=== PATIENT | female | born 2000 | race Caucasian/White ===

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

== ENCOUNTER 2021-11-23 18:59 | Emergency (ER) | payer SELFPAY ==
[2021-11-23 21:42] LABS: Basophils % (Auto) 0.2 % (0.0-1.8); Eosinophils % (Auto) 0.1 % (0.0-4.3); Lymphocytes % (Auto) 6.8 % (13.4-35.0); Mean Corpuscular HGB Conc 30 % (30-34); Mean Corpuscular Volume 79 fl (79-97); Monocytes # (Auto) 0.7 K/mm3 (0.0-0.8); Monocytes % (Auto) 4.8 % (0.0-7.3); Platelet Count 392 K/mm3 (140-440); Red Blood Count 4.56 M/mm3 (3.65-5.03); Red Cell Distribution Width 17.3 % (13.2-15.2)
[2021-11-23 22:04] LABS: Bacteria,Urine 1+ /HPF (Negative); Bilirubin,Urine NEG (Negative); Blood,Urine MOD (Negative); Color,Urine Straw (Yellow); Mucus,Urine FEW /HPF; Protein,Urine <15 mg/dL mg/dL (Negative); Urobilinogen,Urine < 2.0 mg/dL (<2.0)
[2021-11-23 22:06] LABS: Alanine Aminotransferase 14 units/L (7-56); Albumin 4.6 g/dL (3.9-5); Blood Urea Nitrogen 6 mg/dL (7-17); Calcium 8.8 mg/dL (8.4-10.2); Hemolysis Index 6
[2021-11-23 22:28] LABS: BUN/Creatinine Ratio 9
[2021-11-23] MEDS ORDERED: ONDANSETRON 4 MG/2 ML INJ IV ONE (23:25)
[2021-11-23] MEDS ORDERED: KETOROLAC 30 MG/1 ML INJ IV ONE (23:25)
[2021-11-23] MEDS ORDERED: cefTRIAXone/NS 1 GM/50 ML 1 GM/50 ML BAG IV ONE (23:25)
[2021-11-23] MEDS ORDERED: SODIUM CHLORIDE 0.9% 1000 ML 1,000 ML IV ONE (23:25)
--- NOTE | 2021-11-24 00:47 | Emergency Department Report ---
ED Female HPI - General Chief complaint: Abdominal Pain Stated complaint: ALCOHOL POISON Source: patient Mode of arrival: Ambulatory Limitations: No Limitations - History of Present Illness Initial comments: Patient is a A1 21-year-old female with a no past medical history who presents to the ED with complaint of acute onset persistent diffuse low abdominal pain that radiates to the bilateral flanks with nausea and vomiting, dysuria, urinary frequency and urgency for the last 3 days. Patient states that the symptoms have especially worsened in the last 12 hours. Patient denies dizziness, syncope, fever, chills, diarrhea, chest pain or shortness of breath, sore throat, headache, low back pain, dyspareunia, hematochezia, vaginal discharge or cough. MD Complaint: dysuria, pelvic pain, other (Urinary frequency and urgency; nausea and vomiting; bilateral flank pain) -: Sudden, days(s) (3) Location: suprapubic Radiation: suprapubic, L flank, R flank Severity: severe Severity scale (0 -10): 7 Quality: sharp, aching Consistency: constant Improves with: none Worsens with: movement Are you Now?: No Last Menstrual Period: 11/17/21 EDC: 08/24/22 Associated Symptoms: denies other symptoms, abdominal pain (Suprapubic pain), nausea/vomiting, dysuria. denies: vaginal discharge, vaginal bleeding, f ever/chills, loss of appetite, hematuria, rash, seizure, shortness of breath, weakness, other - Related Data Sexually active: Yes : 1 Para: 0 A: 1 Previous Rx's Medication Instructions Recorded Last Taken Type Ibuprofen [Motrin] 600 mg PO Q8H PRN #30 tablet 11/24/21 Unknown Rx Ondansetron [Zofran Odt] 4 mg PO Q8HR PRN #15 tab.rapdis 11/24/21 Unknown Rx Sulfamethoxazole/Trimethoprim 1 each PO Q12H #20 tab 11/24/21 Unknown Rx [Bactrim DS TAB] Allergies Allergy/AdvReac Type Severity Reaction Status Date / Time No Known Allergies Allergy Verified 11/23/21 20:59 ED Review of Systems ROS: Stated complaint: ALCOHOL POISON Other details as noted in HPI Constitutional: denies: chills, fever Eyes: denies: eye pain, eye discharge, vision change ENT: denies: ear pain, throat pain Respiratory: denies: cough, shortness of breath, wheezing Cardiovascular: denies: chest pain, palpitations Endocrine: no symptoms reported Gastrointestinal: abdominal pain (Suprapubic pain), nausea, vomiting. denies: diarrhea, constipation, hematemesis Genitourinary: urgency, dysuria, frequency. denies: hematuria, discharge, abnormal menses, dyspareunia Musculoskeletal: denies: back pain, joint swelling, arthralgia Skin: denies: rash, lesions Neurological: denies: headache, weakness, paresthesias Psychiatric: denies: anxiety, depression Hematological/Lymphatic: denies: easy bleeding, easy bruising ED Past Medical Hx - Past Medical History Previous Medical History?: No - Surgical History Past Surgical History?: No - Medications Home Medications: Home Medications Medication Instructions Recorded Confirmed Last Taken Type Ibuprofen [Motrin] 600 mg PO Q8H PRN #30 tablet 11/24/21 Unknown Rx Ondansetron [Zofran Odt] 4 mg PO Q8HR PRN #15 tab.rapdis 11/24/21 Unknown Rx Sulfamethoxazole/Trimethoprim 1 each PO Q12H #20 tab 11/24/21 Unknown Rx [Bactrim DS TAB] ED Physical Exam - General Limitations: No Limitations General appearance: alert, in no apparent distress - Head Head exam: Present: atraumatic, normocephalic, normal inspection - Eye Eye exam: Present: normal appearance, PERRL, EOMI. Absent: scleral icterus Pupils: Present: normal accommodation - ENT ENT exam: Present: normal exam, normal orophraynx, mucous membranes moist, TM's normal bilaterally, normal external ear exam - Neck Neck exam: Present: normal inspection, full ROM. Absent: tenderness - Respiratory Respiratory exam: Present: normal lung sounds bilaterally. Absent: respiratory distress, wheezes, rales, rhonchi, chest wall tenderness, accessory muscle use, decreased breath sounds, prolonged expiratory - Cardiovascular Cardiovascular Exam: Present: normal rhythm, tachycardia, normal heart sounds. Absent: systolic murmur, diastolic murmur, rubs, gallop - GI/Abdominal GI/Abdominal exam: Present: soft, tenderness (Palpable mild suprapubic tenderness; palpable bilateral flank tenderness), normal bowel sounds. Absent: guarding, rebound, rigid, hyperactive bowel sounds, hypoactive bowel sounds, organomegaly, bruit - Bi-manual exam: Present: other (Pelvic exam deferred at this time) - Extremities Exam Extremities exam: Present: normal inspection, full ROM, normal capillary refill - Back Exam Back exam: Present: normal inspection, full ROM, CVA tenderness (R), CVA tendern ess (L). Absent: tenderness, muscle spasm, paraspinal tenderness, vertebral tenderness - Neurological Exam Neurological exam: Present: alert, oriented X3, CN II-XII intact, normal gait, reflexes normal - Psychiatric Psychiatric exam: Present: normal affect, normal mood - Skin Skin exam: Present: warm, dry, intact, normal color. Absent: rash ED Course Vital Signs 11/23/21 20:59 Temperature 99.8 F H Pulse Rate 102 H Respiratory 17 Rate Blood Pressure 125/84 [Right] O2 Sat by Pulse 99 Oximetry ED Medical Decision Making - Lab Data Result diagrams: 11/23/21 21:11 11/23/21 21:11 - Medical Decision Making This is a A1 21-year-old female with a no past medical history who presents to the ED with complaint of acute onset persistent diffuse low abdominal pain that radiates to the bilateral flanks with nausea and vomiting, dysuria, urinary frequency and urgency for the last 3 days. Patient states that the symptoms have especially worsened in the last 12 hours. In the ED, patient is alert and oriented x3 and is not in any distress. Patient appears to be in pain. Patient was treated for pain in the ED and also given antiemetics and normal saline 1 L IV bolus x1. Lab test results were reviewed and showed acute leukocytosis of 14,400 and significant urinary tract infection in urinalysis. The rest of the lab test results were unremarkable. Patient was treated also in the ED with Rocephin 1 g IV x1. On reevaluation, patient's pain is well controlled medication. Patient felt better and was discharged home on medications including oral antibiotics, pain medication and antiemetics. Patient was advised to follow-up with her primary care physician in 7 to 10 days for reevaluation or return to the ED immediately if symptoms get worse. - Differential Diagnosis UTI; ovarian cyst; ; pyelonephritis; colitis; appendicitis; PID Critical care attestation.: If time is entered above; I have spent that time in minutes in the direct care of this critically ill patient, excluding procedure time. ED Disposition Clinical Impression: Acute pelvic pain, female, Acute urinary tract infection, Nausea and vomiting in adult patient Disposition: 01 HOME / SELF CARE / HOMELESS Is pt being admited?: No Does the pt Need Aspirin: No Condition: Stable Instructions: Abdominal Pain (ED), Pelvic Pain, Female, [id number], Nausea and Vomiting, Adult, [id number], Urinary Tract Infection, Adult, [id number] Additional Instructions: All lab test results were reviewed and are all nonactionable except for urinary tract infection in urinalysis. Your symptoms are likely due to significant UTI. Therefore take medication with food, drink plenty of fluids and follow-up with your primary care physician in 7 to 10 days for reevaluation. Return to the ED immediately if symptoms get worse. Prescriptions: Sulfamethoxazole/Trimethoprim [Bactrim DS TAB] 1 each PO Q12H #20 tab Ibuprofen [Motrin] 600 mg PO Q8H PRN #30 tablet PRN Reason: Pain Ondansetron [Zofran Odt] 4 mg PO Q8HR PRN #15 tab.rapdis PRN Reason: Nausea Referrals: [facility] [Provider Group] - 7-10 days Forms: Work/School Release Form(ED) Time of Disposition: 00:49 Print Language: CZECH
[2021-11-24 03:08] VITALS: BP 119/69
== END 2021-11-24 01:10 | disposition home or self-care (01) ==
LOC: ED 18:59
DX: R10.2 Pelvic and perineal pain (principal); N39.0 Urinary tract infection, site not specified; R11.2 Nausea with vomiting, unspecified
CPT/HCPCS: 36415; 80053; 81001; 83690; 84702; 85025; 87086; 99283